=== PATIENT | male | born 1990 | race Caucasian/White ===

== ENCOUNTER 2017-04-08 17:21 | Emergency (ER) | payer MEDICAID ==
[2017-04-08] MEDS ORDERED: MAGNESIUM HYDROXIDE/AL HYDROX 30 ML, LIDOCAINE VISC 2% 200 MG PO ONE ×2 (18:00)
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
[2017-04-08 18:30] LABS: BASO % 0.5 % (0-6); EOS % 3.6 % (0-6); GRAN % 65.4 % (47-80); HEMATOCRIT 43.6 % (42.0-52.0); HEMOGLOBIN 15.7 gm/dl (14.0-18.0); LYMPH % 20.4 % (16-45); MEAN CELL VOLUME 87.4 fl (81-97); MEAN CORPUSCULAR HEMOGLOBIN 31.5 pg (27-33); MEAN PLATELET VOLUME 10.3 fl (7.4-10.4); MONO % 10.1 % (0-9); PLATELET COUNT 258 K/uL (130-400); RED BLOOD COUNT 4.99 M/uL (4.40-5.70); RED CELL DISTRIBUTION WIDTH 12.9 % (11.5-14.5); WHITE BLOOD COUNT W/O DIFF 5.9 K/uL (4.2-12.2)
[2017-04-08] MEDS ORDERED: LORAZEPAM 0.5 MG TABLET PO ONE (18:35)
[2017-04-08 18:47] LABS: BLOOD UREA NITROGEN 13 mg/dL (6-20); CREATININE 0.8 mg/dL (0.7-1.2); EST GLOMERULAR FILTRATION RATE > 60 mL/min
[2017-04-08 18:48] LABS: TOTAL PROTEIN 7.2 g/dL (6.6-8.7)
[2017-04-08 18:50] LABS: GLUCOSE,RANDOM 130 mg/dL (74-109)
[2017-04-08 18:53] LABS: ALB/GLOB RATIO 1.6 (1.1-1.8); ALBUMIN 4.4 g/dL (4.0-5.0); ALKALINE PHOSPHATASE 117 U/L (40-129); ALT/SGPT 80 U/L (<41); AST/SGOT 35 U/L (10.0-50.0); LIPASE 28 U/L (13-60)
--- NOTE | 2017-04-09 08:05 | RADIOLOGY REPORT ---
EXAM: ACUTE ABDOMEN SERIES HISTORY: PATIENT HAS ABDOMINAL PRESSURE, BLOATING AND CONSTIPATION TIMES TWO DAYS. TECHNIQUE: AP view of the chest and multiple views of the abdomen are provided with a comparison chest x-ray dated 10/11/13. FINDINGS: The cardiomediastinal silhouette is within normal limits for size and contour. The fitz appear unremarkable. There is no radiographic evidence of a focal infiltrate, pleural effusion, or pneumothorax. The bowel gas pattern is nonspecific and nonobstructive. Moderate to large stool burden is identified suggesting constipation. There is no radiographic evidence of free intraperitoneal air. IMPRESSION: 1. NO RADIOGRAPHIC EVIDENCE OF AN ACUTE INTRATHORACIC PROCESS. 2. MODERATE TO LARGE STOOL BURDEN IS NOTED SUGGESTING CONSTIPATION. CLINICAL CORRELATION IS RECOMMENDED. JOB NUMBER: [id number] MTDD
== END 2017-04-08 19:09 | disposition home or self-care (01) ==
LOC: ER 17:21
DX: R10.13 Epigastric pain (principal); K21.9 Gastro-esophageal reflux disease without esophagitis; R14.2 Eructation
CPT/HCPCS: 74022; 80053; 83690; 85025; 99283; 99284